=== PATIENT | male | born 1945 ===

== ENCOUNTER 2023-04-05 11:40 | Inpatient (IN) | payer BC, MEDICAID, SELFPAY ==
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
[2023-04-05 12:13] VITALS: BMI 20.4
[2023-04-05 12:27] VITALS: BP 124/85; PULSE 78; RESP 18; TEMP 36.2; O2SAT 98
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
[2023-04-05] MEDS: QUEtiapine Fumarate 50 MG TABLET PO ×2 (15:41→22:16)
[2023-04-05] MEDS: Divalproex Sodium Sprinkles 125 MG CAP.DR.SPR 250 MG PO ×2 (15:42→20:10)
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
[2023-04-05 18:00] VITALS: BP 138/81; PULSE 90; RESP 18; TEMP 36.6; O2SAT 99
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
[2023-04-05] MEDS: traZODone HCL 50 MG TABLET PO ×2 (20:10→22:16)
[2023-04-05] MEDS: hydrOXYzine HCL 25 MG TABLET PO (20:10)
[2023-04-06 07:45] VITALS: BP 116/65; PULSE 74; RESP 18; TEMP 36; O2SAT 100
[2023-04-06 08:33] LABS: Alanine Aminotransferase 12 U/L (0-40); Albumin Level 4.4 g/dL (3.5-5.0); Alkaline Phosphatase 37 U/L (39-117); Anion Gap 13 (12-20); Aspartate Amino Transferase 24 U/L (5-37); Bilirubin Total 0.9 mg/dL (0.0-1.0); Blood Urea Nitrogen 10 mg/dL (9-16); Calcium 9.6 mg/dL (8.4-10.2); Carbon Dioxide 25 mmol/L (22-29); Chloride 107 mmol/L (96-108); Cholesterol 155 mg/dL (<200); Creatinine Clr Calc Pharmacy 62.1; Estimated Glomerular Filt Rate > 60; Glucose Fasting 99 mg/dL (60-99); HDL Cholesterol 41 mg/dL (>40); LDL Cholesterol Calculated 97 mg/dL (<100); Potassium 3.7 mmol/L (3.3-5.1); Sodium 141 mmol/L (135-145); Total Protein 7.2 g/dL (6.5-8.0); Triglycerides 88 mg/dL (<150)
[2023-04-06] MEDS: Divalproex Sodium Sprinkles 125 MG CAP.DR.SPR 250 MG PO ×3 (08:58→20:20)
[2023-04-06] MEDS: QUEtiapine Fumarate 25 MG TABLET PO ×3 (09:06→20:20)
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
[2023-04-06 18:00] VITALS: BP 148/80; PULSE 97; RESP 16; TEMP 36.2; O2SAT 99
[2023-04-06] MEDS: Acetaminophen 325 MG TABLET 650 MG PO (18:26)
[2023-04-06] MEDS: hydrOXYzine HCL 25 MG TABLET PO (18:27)
[2023-04-06] MEDS: Donepezil HCl 5 MG TABLET PO (20:21)
[2023-04-07 08:00] VITALS: BP 155/90; PULSE 117; RESP 18; TEMP 36.2; O2SAT 99
[2023-04-07] MEDS: QUEtiapine Fumarate 25 MG TABLET PO ×3 (09:28→20:02)
[2023-04-07] MEDS: Divalproex Sodium Sprinkles 125 MG CAP.DR.SPR 250 MG PO ×3 (09:28→20:02)
[2023-04-07] MEDS: hydrOXYzine HCL 25 MG TABLET PO ×2 (12:34→20:02)
[2023-04-07] MEDS: QUEtiapine Fumarate 50 MG TABLET PO (12:38)
[2023-04-07 19:35] VITALS: BP 160/83; PULSE 107; RESP 16; TEMP 36.3; O2SAT 92
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
[2023-04-07] MEDS: Donepezil HCl 5 MG TABLET PO (20:02)
[2023-04-07] MEDS: traZODone HCL 50 MG TABLET PO (20:02)
[2023-04-08 08:30] VITALS: BP 105/54; PULSE 84; RESP 18; TEMP 36.3; O2SAT 100
[2023-04-08] MEDS: QUEtiapine Fumarate 25 MG TABLET PO ×3 (09:02→21:03)
[2023-04-08] MEDS: Divalproex Sodium Sprinkles 125 MG CAP.DR.SPR 250 MG PO ×3 (09:03→21:03)
[2023-04-08] MEDS: hydrOXYzine HCL 25 MG TABLET PO ×2 (17:25→23:36)
[2023-04-08] MEDS: QUEtiapine Fumarate 50 MG TABLET PO (17:25)
[2023-04-08 18:00] VITALS: BP 108/53; PULSE 89; RESP 17; TEMP 36.6; O2SAT 97
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
[2023-04-08] MEDS: Donepezil HCl 5 MG TABLET PO (21:03)
[2023-04-08] MEDS: Acetaminophen 325 MG TABLET 650 MG PO (21:05)
[2023-04-08] MEDS: traZODone HCL 50 MG TABLET PO ×2 (21:06→23:37)
[2023-04-09 08:01] LABS: MANUAL DIFF FLAG NO
[2023-04-09 08:07] VITALS: BP 144/68; PULSE 77; RESP 18; TEMP 36; O2SAT 99
[2023-04-09 08:09] LABS: Basophils Percent Auto 0.3 % (0-2); Eosinophils Percent Auto 1.4 % (0-4); Hematocrit 33.9 % (42.0-52.0); Hemoglobin 11.5 g/dl (14.0-18.0); Imm Gran Abs Auto 0.01 X10*3/uL (0.00-0.03); Imm Gran Pct Auto 0.3 % (0.0-0.4); Lymphocytes Percent Auto 35.7 % (20-40); Mean Corpuscular HGB Conc 33.9 g/dl (31.0-36.0); Mean Corpuscular Hemoglobin 34.3 pg (27.0-33.0); Mean Corpuscular Volume 101.2 fL (80.0-98.0); Mean Platelet Volume 9.4 fL (9.4-12.4); Monocytes Absolute Auto 0.4 X10*3/uL (0.1-1.2); Monocytes Percent Auto 12.6 % (2-11); Neutrophils Absolute Auto 1.4 x10*3/uL (2.0-8.3); Neutrophils Percent Auto 49.7 % (45-73); Platelet Count 217 X10*3/uL (160-400); Red Blood Count 3.35 X10*6/uL (4.60-5.80); Red Cell Distribution Width 12.5 % (11.0-16.0); White Blood Count 2.9 X10*3/uL (4.8-10.8)
[2023-04-09 08:19] LABS: Valproate 58.7 mcg/mL (50.0-100.0)
[2023-04-09 08:22] LABS: Alanine Aminotransferase 15 U/L (0-40); Albumin Level 4.3 g/dL (3.5-5.0); Alkaline Phosphatase 34 U/L (39-117); Anion Gap 10 (12-20); Aspartate Amino Transferase 24 U/L (5-37); Bilirubin Total 1.2 mg/dL (0.0-1.0); Blood Urea Nitrogen 18 mg/dL (9-16); Calcium 9.7 mg/dL (8.4-10.2); Carbon Dioxide 25 mmol/L (22-29); Chloride 109 mmol/L (96-108); Creatinine Clr Calc Pharmacy 60.6; Estimated Glomerular Filt Rate > 60; Glucose Random 102 mg/dL (60-115); Potassium 4.3 mmol/L (3.3-5.1); Sodium 140 mmol/L (135-145); Total Protein 7.1 g/dL (6.5-8.0)
[2023-04-09] MEDS: QUEtiapine Fumarate 25 MG TABLET 37.5 MG PO ×3 (09:29→20:37)
[2023-04-09] MEDS: Divalproex Sodium Sprinkles 125 MG CAP.DR.SPR 250 MG PO ×2 (09:29→14:04)
[2023-04-09] MEDS: QUEtiapine Fumarate 50 MG TABLET PO ×2 (11:49→23:42)
--- NOTE | 2023-04-09 12:03 | PC.NURSE ---
Po intake has been poor. Serge declined breakfast and didn't like his lunch. He was offered an alternative and he stated I don't eat what you pissers eat! Ice cream provided and he ate 2 chocolate ice creams and the dessert that came with lunch. Notified MD Adams that intake is poor and requested dietary consult.
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
[2023-04-09] MEDS: Loperamide HCl 2 MG CAPSULE PO (16:16)
[2023-04-09 18:00] VITALS: BP 104/51; PULSE 98; RESP 18; TEMP 36.2; O2SAT 100
[2023-04-09] MEDS: hydrOXYzine HCL 25 MG TABLET PO (20:38)
[2023-04-09] MEDS: Divalproex Sodium Sprinkles 125 MG CAP.DR.SPR 500 MG PO (20:39)
[2023-04-09] MEDS: Donepezil HCl 5 MG TABLET PO (20:39)
[2023-04-09] MEDS: traZODone HCL 50 MG TABLET PO (20:39)
[2023-04-09] MEDS: Acetaminophen 325 MG TABLET 650 MG PO (20:39)
[2023-04-10] MEDS: Divalproex Sodium Sprinkles 125 MG CAP.DR.SPR 250 MG PO (11:25)
[2023-04-10] MEDS: QUEtiapine Fumarate 50 MG TABLET PO ×4 (11:26→20:37)
[2023-04-10] MEDS: hydrOXYzine HCL 25 MG TABLET PO (11:26)
[2023-04-10 11:32] VITALS: RESP 20
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
[2023-04-10 18:00] VITALS: BP 111/69; PULSE 111; RESP 16; TEMP 36.6; O2SAT 94
[2023-04-10] MEDS: Donepezil HCl 5 MG TABLET PO (20:36)
[2023-04-10] MEDS: Divalproex Sodium Sprinkles 125 MG CAP.DR.SPR 500 MG PO (20:36)
[2023-04-10] MEDS: traZODone HCL 50 MG TABLET PO (20:36)
[2023-04-11] MEDS: Divalproex Sodium Sprinkles 125 MG CAP.DR.SPR 250 MG PO ×2 (08:49→16:05)
[2023-04-11] MEDS: QUEtiapine Fumarate 50 MG TABLET PO ×4 (08:49→16:05)
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
--- NOTE | 2023-04-11 14:06 | MHC.CLN ---
NUTRITION CONSULT FOR LOST WEIGHT IN THE COMMUNITY . NO WEIGHT HX VIEWED. INTAKE APPEARS POOR. TODAY, DID NOT EAT BREAKFAST, ATE 30% AT LUNCH. PATIENT CONFUSED AND UNABLE TO DISCUSS WEIGHT/INTAKE. ADDING ENSURE MAX TID TO PROVIDE ADDITIONAL 450 KCALS, 90 G PROTEIN.
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
[2023-04-11] MEDS: OLANZapine 10 MG VIAL 5 MG IM (17:41)
[2023-04-11 18:00] VITALS: BP 139/78; PULSE 118; RESP 18; TEMP 36.3; O2SAT 100
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
[2023-04-11] MEDS: QUEtiapine Fumarate 100 MG TABLET PO (19:48)
[2023-04-11] MEDS: Donepezil HCl 10 MG TABLET PO (19:48)
[2023-04-11] MEDS: Divalproex Sodium Sprinkles 125 MG CAP.DR.SPR 500 MG PO (19:48)
[2023-04-11] MEDS: traZODone HCL 50 MG TABLET PO (19:49)
[2023-04-11] MEDS: hydrOXYzine HCL 25 MG TABLET PO (19:49)
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
[2023-04-12] MEDS: QUEtiapine Fumarate 100 MG TABLET PO ×2 (15:59→19:41)
[2023-04-12] MEDS: Divalproex Sodium Sprinkles 125 MG CAP.DR.SPR 250 MG PO (15:59)
[2023-04-12 17:00] VITALS: BMI 20.2
[2023-04-12 18:00] VITALS: BP 135/91; PULSE 116; RESP 18; TEMP 36.6; O2SAT 97
[2023-04-12] MEDS: Donepezil HCl 10 MG TABLET PO (19:41)
[2023-04-12] MEDS: traZODone HCL 50 MG TABLET PO (19:41)
[2023-04-12] MEDS: Divalproex Sodium Sprinkles 125 MG CAP.DR.SPR 500 MG PO (19:41)
[2023-04-12] MEDS: hydrOXYzine HCL 25 MG TABLET PO (19:42)
[2023-04-13 09:00] VITALS: BP 134/68; PULSE 86; RESP 18; TEMP 36.1; O2SAT 95
[2023-04-13] MEDS: Divalproex Sodium Sprinkles 125 MG CAP.DR.SPR 250 MG PO ×2 (09:39→14:56)
[2023-04-13] MEDS: QUEtiapine Fumarate 100 MG TABLET PO ×2 (09:39→14:56)
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
[2023-04-13 18:00] VITALS: BP 132/61; PULSE 104; RESP 18; TEMP 36.3; O2SAT 100
[2023-04-13] MEDS: QUEtiapine Fumarate 50 MG TABLET PO (18:48)
[2023-04-13] MEDS: Divalproex Sodium Sprinkles 125 MG CAP.DR.SPR 500 MG PO (20:45)
[2023-04-13] MEDS: Donepezil HCl 10 MG TABLET PO (20:45)
[2023-04-13] MEDS: hydrOXYzine HCL 25 MG TABLET PO (20:45)
[2023-04-13] MEDS: QUEtiapine Fumarate 200 MG TABLET PO (20:46)
[2023-04-13] MEDS: traZODone HCL 50 MG TABLET PO (20:46)
[2023-04-13] MEDS: Memantine HCl 5 MG TABLET PO (20:46)
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
[2023-04-14 08:09] VITALS: BP 118/66; PULSE 94; RESP 18; TEMP 36.8; O2SAT 99
[2023-04-14] MEDS: hydrOXYzine HCL 25 MG TABLET PO ×2 (08:14→16:13)
[2023-04-14] MEDS: QUEtiapine Fumarate 50 MG TABLET PO ×2 (08:14→16:13)
[2023-04-14] MEDS: QUEtiapine Fumarate 100 MG TABLET PO ×2 (08:14→14:46)
[2023-04-14] MEDS: Divalproex Sodium Sprinkles 125 MG CAP.DR.SPR 250 MG PO ×2 (08:14→14:46)
[2023-04-14] MEDS: Memantine HCl 5 MG TABLET PO ×2 (08:14→20:25)
[2023-04-14] MEDS: OLANZapine ODT 10 MG TAB.RAPDIS TRANSLINGU ×2 (11:34→17:10)
[2023-04-14 18:00] VITALS: BP 127/81; PULSE 112; RESP 18; TEMP 36.4; O2SAT 98
[2023-04-14] MEDS: QUEtiapine Fumarate 200 MG TABLET PO (20:25)
[2023-04-14] MEDS: Donepezil HCl 10 MG TABLET PO (20:25)
[2023-04-14] MEDS: Divalproex Sodium Sprinkles 125 MG CAP.DR.SPR 500 MG PO (20:25)
[2023-04-14] MEDS: traZODone HCL 50 MG TABLET PO (20:25)
[2023-04-14] MEDS: Acetaminophen 325 MG TABLET 650 MG PO (20:30)
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
[2023-04-15] MEDS: Divalproex Sodium Sprinkles 125 MG CAP.DR.SPR 250 MG PO ×2 (11:06→14:25)
[2023-04-15] MEDS: hydrOXYzine HCL 25 MG TABLET PO (11:07)
[2023-04-15] MEDS: Memantine HCl 10 MG TABLET PO ×2 (11:07→20:22)
[2023-04-15] MEDS: QUEtiapine Fumarate 50 MG TABLET 150 MG PO ×2 (11:07→14:27)
[2023-04-15 11:15] VITALS: RESP 18
--- NOTE | 2023-04-15 11:39 | PC.NURSE ---
Declined to have vital signs taken despite multiple attempts by this television writer; Dr. Adams notified.
[2023-04-15] MEDS: QUEtiapine Fumarate 50 MG TABLET PO (17:18)
[2023-04-15 19:30] VITALS: BP 137/77; PULSE 90; RESP 18; TEMP 36.9; O2SAT 100
[2023-04-15] MEDS: traZODone HCL 50 MG TABLET PO (20:22)
[2023-04-15] MEDS: Divalproex Sodium Sprinkles 125 MG CAP.DR.SPR 500 MG PO (20:22)
[2023-04-15] MEDS: QUEtiapine Fumarate 300 MG TABLET PO (20:22)
[2023-04-15] MEDS: Donepezil HCl 10 MG TABLET PO (20:22)
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
[2023-04-16] MEDS: QUEtiapine Fumarate 50 MG TABLET 150 MG PO (13:30)
[2023-04-16] MEDS: Divalproex Sodium Sprinkles 125 MG CAP.DR.SPR 250 MG PO (14:20)
[2023-04-16 18:00] VITALS: BP 116/66; PULSE 108; RESP 16; TEMP 37; O2SAT 100
[2023-04-16] MEDS: Divalproex Sodium Sprinkles 125 MG CAP.DR.SPR 500 MG PO (20:32)
[2023-04-16] MEDS: Memantine HCl 10 MG TABLET PO (20:32)
[2023-04-16] MEDS: traZODone HCL 50 MG TABLET PO (20:33)
[2023-04-16] MEDS: QUEtiapine Fumarate 300 MG TABLET PO (20:33)
[2023-04-16] MEDS: Donepezil HCl 10 MG TABLET PO (20:38)
[2023-04-16] MEDS: hydrOXYzine HCL 25 MG TABLET PO (20:39)
[2023-04-17 08:05] VITALS: BP 118/61; PULSE 71; RESP 18; TEMP 36.6; O2SAT 100
[2023-04-17] MEDS: QUEtiapine Fumarate 50 MG TABLET 150 MG PO ×2 (09:01→13:29)
[2023-04-17] MEDS: Divalproex Sodium Sprinkles 125 MG CAP.DR.SPR 250 MG PO ×2 (09:02→14:36)
[2023-04-17] MEDS: Memantine HCl 10 MG TABLET PO ×2 (09:02→20:13)
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
[2023-04-17 18:00] VITALS: BP 126/72; PULSE 98; RESP 16; TEMP 36.3; O2SAT 99
[2023-04-17] MEDS: Divalproex Sodium Sprinkles 125 MG CAP.DR.SPR 500 MG PO (20:12)
[2023-04-17] MEDS: traZODone HCL 50 MG TABLET PO (20:13)
[2023-04-17] MEDS: QUEtiapine Fumarate 300 MG TABLET PO (20:13)
[2023-04-17] MEDS: Donepezil HCl 10 MG TABLET PO (20:17)
[2023-04-18] MEDS: Divalproex Sodium Sprinkles 125 MG CAP.DR.SPR 250 MG PO ×2 (11:44→15:25)
[2023-04-18] MEDS: Memantine HCl 10 MG TABLET PO ×2 (11:44→21:06)
[2023-04-18] MEDS: QUEtiapine Fumarate 50 MG TABLET 150 MG PO ×2 (11:45→15:26)
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
[2023-04-18 18:00] VITALS: BP 115/57; PULSE 116; RESP 16; TEMP 35.7; O2SAT 100
[2023-04-18] MEDS: Divalproex Sodium Sprinkles 125 MG CAP.DR.SPR 500 MG PO (21:05)
[2023-04-18] MEDS: hydrOXYzine HCL 25 MG TABLET PO (21:06)
[2023-04-18] MEDS: traZODone HCL 50 MG TABLET PO (21:06)
[2023-04-18] MEDS: Donepezil HCl 10 MG TABLET PO (21:06)
[2023-04-18] MEDS: QUEtiapine Fumarate 300 MG TABLET PO (21:06)
[2023-04-19 10:00] VITALS: BP 119/59; PULSE 99; RESP 16; TEMP 36.3; O2SAT 99
[2023-04-19] MEDS: QUEtiapine Fumarate 50 MG TABLET 150 MG PO ×2 (10:57→14:41)
[2023-04-19] MEDS: Memantine HCl 10 MG TABLET PO ×2 (10:57→21:08)
[2023-04-19] MEDS: Divalproex Sodium Sprinkles 125 MG CAP.DR.SPR 250 MG PO ×2 (10:57→14:42)
[2023-04-19 10:58] LABS: MANUAL DIFF FLAG NO
[2023-04-19 11:03] LABS: Basophils Percent Auto 0.2 % (0-2); Eosinophils Percent Auto 0.4 % (0-4); Hematocrit 33.6 % (42.0-52.0); Hemoglobin 11.5 g/dl (14.0-18.0); Imm Gran Abs Auto 0.03 X10*3/uL (0.00-0.03); Imm Gran Pct Auto 0.6 % (0.0-0.4); Lymphocytes Absolute Auto 0.6 X10*3/uL (1.2-4.9); Lymphocytes Percent Auto 10.6 % (20-40); Mean Corpuscular HGB Conc 34.2 g/dl (31.0-36.0); Mean Corpuscular Hemoglobin 33.8 pg (27.0-33.0); Mean Corpuscular Volume 98.8 fL (80.0-98.0); Mean Platelet Volume 9.5 fL (9.4-12.4); Monocytes Absolute Auto 0.6 X10*3/uL (0.1-1.2); Monocytes Percent Auto 11.4 % (2-11); Neutrophils Percent Auto 76.8 % (45-73); Platelet Count 212 X10*3/uL (160-400); Red Cell Distribution Width 12.2 % (11.0-16.0); White Blood Count 5.2 X10*3/uL (4.8-10.8)
[2023-04-19 11:19] LABS: Alanine Aminotransferase 13 U/L (0-40); Albumin Level 3.9 g/dL (3.5-5.0); Alkaline Phosphatase 39 U/L (39-117); Anion Gap 15 (12-20); Aspartate Amino Transferase 22 U/L (5-37); Bilirubin Total 0.7 mg/dL (0.0-1.0); Blood Urea Nitrogen 24 mg/dL (9-16); Calcium 9.6 mg/dL (8.4-10.2); Carbon Dioxide 25 mmol/L (22-29); Chloride 106 mmol/L (96-108); Cholesterol 158 mg/dL (<200); Creatinine Clr Calc Pharmacy 63.2; Estimated Glomerular Filt Rate > 60; Glucose Fasting 116 mg/dL (60-99); HDL Cholesterol 44 mg/dL (>40); LDL Cholesterol Calculated 102 mg/dL (<100); Potassium 4.1 mmol/L (3.3-5.1); Sodium 142 mmol/L (135-145); Total Protein 6.9 g/dL (6.5-8.0); Triglycerides 63 mg/dL (<150)
[2023-04-19 11:26] LABS: Valproate 60.3 mcg/mL (50.0-100.0)
[2023-04-19 13:12] LABS: Estimated Average Glucose 103 mg/dL; Hemoglobin A1c % 5.2 % (<6.0)
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
[2023-04-19 18:00] VITALS: BP 131/78; PULSE 114; RESP 18; TEMP 36.7; O2SAT 99
[2023-04-19] MEDS: traZODone HCL 50 MG TABLET PO (21:08)
[2023-04-19] MEDS: QUEtiapine Fumarate 300 MG TABLET PO (21:08)
[2023-04-19] MEDS: hydrOXYzine HCL 25 MG TABLET PO (21:08)
[2023-04-19] MEDS: Divalproex Sodium Sprinkles 125 MG CAP.DR.SPR 500 MG PO (21:08)
[2023-04-19] MEDS: Donepezil HCl 10 MG TABLET PO (21:08)
[2023-04-20 06:00] VITALS: BP 128/72; PULSE 88; RESP 16; TEMP 36.5; O2SAT 99
[2023-04-20] MEDS: Memantine HCl 10 MG TABLET PO ×2 (11:03→20:40)
[2023-04-20] MEDS: QUEtiapine Fumarate 50 MG TABLET 150 MG PO ×2 (11:03→13:38)
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
[2023-04-20] MEDS: Divalproex Sodium Sprinkles 125 MG CAP.DR.SPR 500 MG PO ×2 (14:26→20:40)
[2023-04-20 19:45] VITALS: BP 123/69; PULSE 103; RESP 16; TEMP 36.2; O2SAT 100
[2023-04-20] MEDS: traZODone HCL 50 MG TABLET PO (20:39)
[2023-04-20] MEDS: QUEtiapine Fumarate 300 MG TABLET PO (20:39)
[2023-04-20] MEDS: Donepezil HCl 10 MG TABLET PO (20:40)
[2023-04-21 08:10] VITALS: BP 119/75; PULSE 97; RESP 18; TEMP 36.6; O2SAT 98
[2023-04-21] MEDS: Memantine HCl 10 MG TABLET PO ×2 (09:16→20:07)
[2023-04-21] MEDS: QUEtiapine Fumarate 50 MG TABLET 150 MG PO (09:16)
[2023-04-21] MEDS: Divalproex Sodium Sprinkles 125 MG CAP.DR.SPR 500 MG PO ×2 (09:17→20:07)
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
[2023-04-21] MEDS: Acetaminophen 325 MG TABLET 650 MG PO (12:20)
[2023-04-21 18:00] VITALS: BP 128/73; PULSE 100; RESP 18; TEMP 36.6; O2SAT 99
[2023-04-21] MEDS: Donepezil HCl 10 MG TABLET PO (20:07)
[2023-04-21] MEDS: QUEtiapine Fumarate 300 MG TABLET PO (20:07)
[2023-04-21] MEDS: traZODone HCL 50 MG TABLET PO (20:07)
[2023-04-22 06:00] VITALS: BP 137/77; PULSE 90; RESP 16; TEMP 36.9; O2SAT 98
--- NOTE | 2023-04-22 06:51 | PC.NURSE ---
During morning care noticed a lg fluid filled blister on right heel, foot elevated to get pressure off the heel No c/o pain or discomfort at this time
[2023-04-22] MEDS: Memantine HCl 10 MG TABLET PO ×2 (08:37→20:21)
[2023-04-22] MEDS: Divalproex Sodium Sprinkles 125 MG CAP.DR.SPR 500 MG PO ×3 (08:37→20:21)
[2023-04-22] MEDS: QUEtiapine Fumarate 50 MG TABLET 150 MG PO ×2 (08:37→13:44)
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
[2023-04-22 19:35] VITALS: BP 155/65; PULSE 95; RESP 16; TEMP 36.5; O2SAT 100
[2023-04-22] MEDS: QUEtiapine Fumarate 300 MG TABLET PO (20:21)
[2023-04-22] MEDS: traZODone HCL 50 MG TABLET PO (20:21)
[2023-04-22] MEDS: Donepezil HCl 10 MG TABLET PO (20:21)
[2023-04-23 10:00] VITALS: BP 111/60; PULSE 92; RESP 18; TEMP 36.2; O2SAT 97
[2023-04-23] MEDS: Memantine HCl 10 MG TABLET PO ×2 (10:56→21:26)
[2023-04-23] MEDS: QUEtiapine Fumarate 50 MG TABLET PO (10:56)
[2023-04-23] MEDS: QUEtiapine Fumarate 50 MG TABLET 150 MG PO ×2 (10:57→15:36)
[2023-04-23] MEDS: Divalproex Sodium Sprinkles 125 MG CAP.DR.SPR 500 MG PO ×3 (10:57→21:26)
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
--- NOTE | 2023-04-23 16:54 | PC.NURSE ---
Addendum entered by Ashely Cerna RN 04/23/23 16:56: Reddened round areas on bilateral buttocks noted during providing care. Area washed, patted dry and barrier cream applied. Will continue to monitor. Original Note: Pt has blister on right heel, slight amt of fluid. Skin prep applied. MD notified (dr Adams). Pt denies pain.
[2023-04-23 18:00] VITALS: BP 126/91; PULSE 99; RESP 18; TEMP 36.8; O2SAT 98
[2023-04-23] MEDS: Donepezil HCl 10 MG TABLET PO (21:26)
[2023-04-23] MEDS: traZODone HCL 50 MG TABLET PO (21:26)
[2023-04-23] MEDS: QUEtiapine Fumarate 300 MG TABLET PO (21:26)
[2023-04-24] MEDS: hydrOXYzine HCL 25 MG TABLET PO ×2 (02:39→20:16)
[2023-04-24] MEDS: Acetaminophen 325 MG TABLET 650 MG PO ×2 (02:39→20:14)
[2023-04-24 06:00] VITALS: BP 132/70; PULSE 96; RESP 18; TEMP 36.2; O2SAT 98
[2023-04-24] MEDS: Divalproex Sodium Sprinkles 125 MG CAP.DR.SPR 500 MG PO ×3 (11:58→20:15)
[2023-04-24] MEDS: Memantine HCl 10 MG TABLET PO ×2 (11:59→20:16)
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
[2023-04-24] MEDS: QUEtiapine Fumarate 200 MG TABLET PO (12:25)
--- NOTE | 2023-04-24 15:32 | HO.WOUND ---
Wound Care Consult Reason for consult: Pt with suspected right heel breakdown, question impaired skin integrity to right and left buttock. Patient was in the bed at the time of consult. Patient was being verbally abusive and combative with care. With the help of another nurse, patient was redirected and was manageable to assess and treat. The patient has a stage II pressure injury to his right heel. Patient wearing prevalon boots to help offload area. Foam border removed. Patient has a intact fluid filled blister measuring 3cm x 3.5cm. No drainage on the dressing. The blister seems to be reabsorbing. Surrounding skin is intact. Skin prep applied to the blister and periwound. Foam border applied and boot put back on. The other area in question was his bilateral buttocks. the right buttock skin is dry and intact. No abnormalities at this time. For the left buttock, a foam border was removed. Zinc barrier cream being used. There is a 5cm x 5.5cm area of blanchable redness. Not yet a stage I. Foam border reapplied over area. Recommendation: For the right heel, would wipe area with skin prep to help protect blistered area. Apply a foam border to help pad and protect. Would change foam every other day to keep an eye to the area. Continue to wear the offloading boot when in bed. For the left buttock, may continue to apply a thin layer of zinc barrier cream and foam border every other day to reddened area. If patient is in bed for long periods of time, make sure to do frequent repositioning if patient is agreeable. Not sure on nutritional status with patient, but if able would increase protein intake to help with wound healing. If there are any changes or questions, please feel free and reconsult wound care.
[2023-04-24 18:00] VITALS: BP 132/68; PULSE 106; RESP 18; TEMP 36.9; O2SAT 98
[2023-04-24] MEDS: traZODone HCL 50 MG TABLET PO (20:16)
[2023-04-24] MEDS: QUEtiapine Fumarate 300 MG TABLET PO (20:16)
[2023-04-24] MEDS: Donepezil HCl 10 MG TABLET PO (20:16)
[2023-04-25 06:00] VITALS: RESP 16
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
[2023-04-25 13:58] VITALS: BMI 20.2
[2023-04-25] MEDS: Divalproex Sodium Sprinkles 125 MG CAP.DR.SPR 500 MG PO (14:16)
[2023-04-25] MEDS: QUEtiapine Fumarate 200 MG TABLET PO (14:16)
[2023-04-25] MEDS: Memantine HCl 10 MG TABLET PO ×2 (14:16→21:54)
--- NOTE | 2023-04-25 14:28 | MHC.CLN ---
NUTRITION CONSULT FOR WOUND. REGULAR DIET, ENSURE MAX PROTEIN TID PROVIDES 450 KCALS, 90 G PROTEIN. NEW STAGE II PRESSURE INJURY TO RIGHT HEEL. SUPPLEMENT TO INCREASE PO INTAKE AND PROMOTE WOUND HEALING. INTAKE AT MEALS 0-25%. DOES NOT APPEAR TO BE MEETING NUTRITIONAL NEEDS VIA PO. STATUS IS FULL CODE. MAY BENEFIT FROM ARTIFICIAL NUTRITION. FOLLOW FOR INTAKE, WEIGHT AND WOUND HEALING.
[2023-04-25 18:00] VITALS: BP 141/62; RESP 18; TEMP 36.7
[2023-04-25] MEDS: Divalproex Sodium Sprinkles 125 MG CAP.DR.SPR 750 MG PO (21:53)
[2023-04-25] MEDS: traZODone HCL 50 MG TABLET PO (21:54)
[2023-04-25] MEDS: Donepezil HCl 10 MG TABLET PO (21:54)
[2023-04-25] MEDS: QUEtiapine Fumarate 300 MG TABLET PO (21:54)
[2023-04-26 07:00] VITALS: BMI 17.0
[2023-04-26 08:10] VITALS: BP 121/65; PULSE 76; RESP 18; TEMP 36.1; O2SAT 99
[2023-04-26] MEDS: QUEtiapine Fumarate 200 MG TABLET PO (08:47)
[2023-04-26] MEDS: Memantine HCl 10 MG TABLET PO (08:47)
[2023-04-26] MEDS: Divalproex Sodium Sprinkles 125 MG CAP.DR.SPR 500 MG PO ×2 (08:47→16:46)
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
[2023-04-26 19:45] VITALS: BP 115/61; PULSE 91; RESP 18; TEMP 36.3; O2SAT 98
[2023-04-27] MEDS: Memantine HCl 10 MG TABLET PO (10:51)
[2023-04-27] MEDS: Divalproex Sodium Sprinkles 125 MG CAP.DR.SPR 500 MG PO ×2 (10:51→15:38)
--- NOTE | 2023-04-27 12:49 | MHC.CLN ---
F/U DIET=REGULAR. ENSURE MAX PROTEIN TID PROVIDES 450 KCALS, 90 G PROTEIN. STAGE II PRESSURE INJURY TO RIGHT HEEL. SUPPLEMENT TO INCREASE PO INTAKE AND PROMOTE WOUND HEALING. INTAKE AT MEALS CONTINUES TO BE POOR. DOES NOT APPEAR TO BE MEETING NUTRITIONAL NEEDS VIA PO. COMPARISON OF WEIGHTS ON 04/26 AND 04/05 SHOW SIGNIFICANT, UNPLANNED WEIGHT LOSS -16.4% X APPROX ONE MONTH. STATUS IS FULL CODE. MAY BENEFIT FROM ARTIFICIAL NUTRITION. FOLLOW FOR INTAKE, WEIGHT AND WOUND HEALING.
[2023-04-27 18:00] VITALS: BP 146/64; PULSE 82; RESP 18; TEMP 36.2; O2SAT 97
[2023-04-27] MEDS: QUEtiapine Fumarate 300 MG TABLET PO (20:40)
[2023-04-27] MEDS: Donepezil HCl 10 MG TABLET PO (20:40)
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
[2023-04-28 08:39] VITALS: RESP 16; TEMP 36.2
[2023-04-28] MEDS: Divalproex Sodium Sprinkles 125 MG CAP.DR.SPR 500 MG PO ×2 (09:02→14:15)
[2023-04-28] MEDS: QUEtiapine Fumarate 50 MG TABLET PO ×2 (09:03→17:22)
[2023-04-28 11:53] LABS: Alanine Aminotransferase 11 U/L (0-40); Albumin Level 3.3 g/dL (3.5-5.0); Alkaline Phosphatase 40 U/L (39-117); Anion Gap 17 (12-20); Aspartate Amino Transferase 18 U/L (5-37); Bilirubin Total 0.4 mg/dL (0.0-1.0); Blood Urea Nitrogen 22 mg/dL (9-16); Calcium 8.7 mg/dL (8.4-10.2); Carbon Dioxide 26 mmol/L (22-29); Chloride 104 mmol/L (96-108); Creatinine Clr Calc Pharmacy 57.5; Estimated Glomerular Filt Rate > 60; Glucose Random 92 mg/dL (60-115); Potassium 3.7 mmol/L (3.3-5.1); Sodium 143 mmol/L (135-145)
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
--- NOTE | 2023-04-28 15:42 | PC.NURSE ---
Dr. Verdugo notified that Serge declined VS and that blood work from the morning returned with many abnormal results.
[2023-04-28 18:00] VITALS: BP 128/77; PULSE 88; RESP 18; TEMP 35.7; O2SAT 100
[2023-04-28] MEDS: QUEtiapine Fumarate 300 MG TABLET PO (20:20)
[2023-04-28] MEDS: Acetaminophen 325 MG TABLET 650 MG PO (20:20)
--- NOTE | 2023-04-29 13:10 | PM.EVENT ---
Event Note Date of Service: 04/29/23 Event Note: 77-year-old male with history of Alzheimer's dementia with behavioral disturbance, chronic macrocytic anemia, history of dysphagia admitted to geriatric psychiatry consult placed to hospitalist service for evaluation of pancytopenia and unintentional weight loss. The patient has lost >16% body weight sine admission. Was 61kg in 12/12 at PCP office. On admission was 57kg, now 47.9kg. The patient is not eating though on exam endorses that he is hungry. When offered meals he yells this smells like sh*t . Patient unable to provide answer when asked what he can be brought to eat that he would like. Becomes tangential stating he is scared but unable to elaborate and uttering nonsensical words. He is being offered nutrition supplements and is being followed by nutrition. On review of chart as well as [facility] chart, patient has had chronic intermittent leukopenia and macrocytic anemia, platelets normal. His creatinine remains stable, but BUN climbing, patient not drinking. Electrolytes normal. Hgb A1c 5.2%. Hepatic function normal. Total protein has dropped to 6.0, albumin to 3.3 in the setting of malnutrition. He is afebrile, vitals stable. Given the leukopenia, will check UA and CXR though low suspicion for infectious process. In my opinion, lab abnormalities and weight loss are likely largely due to malnutrition, though bone marrow/myelodysplastic syndrome cannot be entirely excluded. The patient has failure to thrive in the setting cerebral atrophy related to advanced alzheimers dementia. I do not think head ct would improve or change outcomes. I do not think artificial nutrition/g tube for nutrition would improve his quality of life, but could be considered if family desires. Given patient's significant decline and failure to thrive r/t alzheimer's dementia, would recommend consideration of family discussion to make patient comfort measures only. If family desires, can pursue outpt age appropriate cancer screening given the long standing leukopenia and weight loss, but prognosis remains guarded and this is unlikely to improve quality of life. Time Spent With Patient Time: Total time managing care of this patient today ____ minutes.
[2023-04-29 18:00] VITALS: RESP 16
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
[2023-04-29] MEDS: QUEtiapine Fumarate 300 MG TABLET PO (20:20)
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
[2023-04-29] MEDS: QUEtiapine Fumarate 50 MG TABLET PO (22:29)
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
[2023-04-30] MEDS: QUEtiapine Fumarate 50 MG TABLET PO (14:53)
[2023-04-30] MEDS: Acetaminophen 325 MG TABLET 650 MG PO (14:53)
[2023-04-30 15:02] VITALS: BMI 17.0
--- NOTE | 2023-04-30 15:08 | MHC.CLN ---
Addendum entered by Ying Veliz, RD 04/30/23 15:14: ALERTED PROVIDER ABOUT MALNUTRITION VIA TIGER TEXT. Original Note: NUTRITION QUALIFIES SEVERELY MALNOURISHED BASED ON SIGNIFICANT WEIGHT LOSS OF -16.4% X LESS THAN ONE MONTH AND POOR PO INTAKE. DIET=REGULAR. ENSURE MAX PROTEIN TID PROVIDES 450 KCALS, 90 G PROTEIN. PATIENT APPEARS THIN. STAGE II PRESSURE INJURY TO RIGHT HEEL. SUPPLEMENT TO INCREASE PO INTAKE AND PROMOTE WOUND HEALING. INTAKE AT MEALS 0-25%. DOES NOT APPEAR TO BE MEETING NUTRITIONAL NEEDS VIA PO. STATUS IS FULL CODE. MAY BENEFIT FROM ARTIFICIAL NUTRITION. FOLLOW FOR INTAKE, WEIGHT AND WOUND HEALING.
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
[2023-04-30 18:00] VITALS: RESP 16
[2023-05-01] MEDS: QUEtiapine Fumarate 50 MG TABLET PO (03:49)
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
[2023-05-01 18:00] VITALS: BP 134/69; PULSE 102; RESP 16; TEMP 36.2; O2SAT 97
[2023-05-02 10:05] VITALS: BP 120/73; PULSE 82; RESP 18; TEMP 36.4; O2SAT 94
--- NOTE | 2023-05-02 14:01 | MHC.CLN ---
F/U DIET=REGULAR. ENSURE MAX PROTEIN TID PROVIDES 450 KCALS, 90 G PROTEIN. STAGE II PRESSURE INJURY TO RIGHT HEEL. SUPPLEMENT TO INCREASE PO INTAKE AND PROMOTE WOUND HEALING. INTAKE TODAY WAS 0 AT BREAKFAST AND 80% AT LUNCH. QUALIFIES SEVERE MALNUTRITION. FAMILY MEETING TODAY. FOLLOW FOR GOALS OF CARE, INTAKE, WEIGHT AND WOUND HEALING.
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
[2023-05-02 18:00] VITALS: BP 132/62; PULSE 99; RESP 17; TEMP 36.6; O2SAT 96
[2023-05-02] MEDS: OLANZapine 7.5 MG TABLET PO (20:03)
[2023-05-02] MEDS: Memantine HCl 10 MG TABLET PO (20:03)
[2023-05-02] MEDS: Divalproex Sodium Sprinkles 125 MG CAP.DR.SPR 750 MG PO (20:03)
[2023-05-02] MEDS: traZODone HCL 25 MG HALFTAB PO (20:04)
[2023-05-02] MEDS: traZODone HCL 50 MG TABLET PO ×2 (20:04→22:48)
[2023-05-02] MEDS: OLANZapine ODT 10 MG TAB.RAPDIS TRANSLINGU (21:31)
[2023-05-03] MEDS: OLANZapine 5 MG TABLET PO (00:24)
[2023-05-03] MEDS: LORazepam 1 MG TABLET 2 MG PO (00:24)
[2023-05-03 07:00] VITALS: BMI 18.3
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
[2023-05-03] MEDS: traZODone HCL 50 MG TABLET PO ×3 (14:23→21:02)
[2023-05-03] MEDS: Divalproex Sodium Sprinkles 125 MG CAP.DR.SPR 500 MG PO (14:24)
[2023-05-03 18:00] VITALS: BP 119/75; PULSE 109; RESP 18; TEMP 37.1; O2SAT 97
[2023-05-03] MEDS: OLANZapine ODT 10 MG TAB.RAPDIS TRANSLINGU (18:40)
[2023-05-03] MEDS: Divalproex Sodium Sprinkles 125 MG CAP.DR.SPR 750 MG PO (21:02)
[2023-05-03] MEDS: Acetaminophen 325 MG TABLET 650 MG PO (21:02)
[2023-05-03] MEDS: Memantine HCl 10 MG TABLET PO (21:02)
[2023-05-03] MEDS: OLANZapine 7.5 MG TABLET PO (21:02)
[2023-05-04 08:00] VITALS: BP 101/58; PULSE 66; RESP 18; TEMP 36.6; O2SAT 97
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
[2023-05-04] MEDS: Divalproex Sodium Sprinkles 125 MG CAP.DR.SPR 500 MG PO ×2 (10:00→14:55)
[2023-05-04] MEDS: OLANZapine 2.5 MG TABLET PO (10:00)
[2023-05-04] MEDS: traZODone HCL 50 MG TABLET PO ×4 (10:00→20:11)
[2023-05-04] MEDS: Memantine HCl 10 MG TABLET PO ×2 (10:00→21:27)
--- NOTE | 2023-05-04 13:21 | MHC.CLN ---
F/U DIET=REGULAR. ENSURE MAX PROTEIN TID PROVIDES 450 KCALS, 90 G PROTEIN. STAGE II PRESSURE INJURY TO RIGHT HEEL. SUPPLEMENT TO INCREASE PO INTAKE AND PROMOTE WOUND HEALING. IMPROVED INTAKE TODAY WITH 75% CONSUMED AT BREAKFAST AND LUNCH. DISCUSSED FINGER FOODS WITH STAFF. PATIENT IS FED AND LIKES MASHED POTATOES. CHANGE OF ORDER TO FINGER FOODS WOULD LIMIT OPTIONS. FINGER FOODS ALWAYS AVAILABLE ON MENU FOR SELECTION. KITCHEN NOTIFIED OF CHOCOLATE PREFERENCE FOR ENSURE. MOLST COMPLETED. NO TUBE FEEDING. FOLLOW FOR INTAKE AND WOUND HEALING.
[2023-05-04] MEDS: Divalproex Sodium Sprinkles 125 MG CAP.DR.SPR 750 MG PO (20:10)
[2023-05-04] MEDS: OLANZapine 7.5 MG TABLET PO (20:10)
[2023-05-04 20:40] VITALS: BP 125/62; PULSE 107; RESP 18; TEMP 36.3; O2SAT 95
[2023-05-05] MEDS: OLANZapine ODT 10 MG TAB.RAPDIS TRANSLINGU ×3 (00:03→14:49)
[2023-05-05] MEDS: Acetaminophen 325 MG TABLET 650 MG PO (00:46)
[2023-05-05 10:47] VITALS: BP 164/67; PULSE 87; RESP 16; TEMP 36.3; O2SAT 99
[2023-05-05] MEDS: Divalproex Sodium Sprinkles 125 MG CAP.DR.SPR 500 MG PO ×2 (10:51→14:48)
[2023-05-05] MEDS: traZODone HCL 50 MG TABLET PO ×4 (10:52→20:40)
[2023-05-05] MEDS: Memantine HCl 10 MG TABLET PO ×2 (10:52→20:40)
[2023-05-05] MEDS: OLANZapine 2.5 MG TABLET PO (10:52)
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
[2023-05-05 20:35] VITALS: BP 138/66; PULSE 115; RESP 17; TEMP 36.9; O2SAT 97
[2023-05-05] MEDS: Divalproex Sodium Sprinkles 125 MG CAP.DR.SPR 750 MG PO (20:39)
[2023-05-05] MEDS: OLANZapine 7.5 MG TABLET PO (20:40)
[2023-05-06] MEDS: OLANZapine ODT 10 MG TAB.RAPDIS TRANSLINGU (00:15)
[2023-05-06 11:42] VITALS: BP 153/66; PULSE 90; RESP 16; TEMP 36.4; O2SAT 97
[2023-05-06] MEDS: OLANZapine 2.5 MG TABLET PO (11:49)
[2023-05-06] MEDS: Divalproex Sodium Sprinkles 125 MG CAP.DR.SPR 500 MG PO ×2 (11:49→14:56)
[2023-05-06] MEDS: traZODone HCL 50 MG TABLET PO ×4 (11:49→20:21)
[2023-05-06] MEDS: Memantine HCl 10 MG TABLET PO ×2 (11:49→20:21)
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
[2023-05-06 18:00] VITALS: BP 127/73; PULSE 87; RESP 16; TEMP 36.4; O2SAT 97
[2023-05-06] MEDS: Acetaminophen 325 MG TABLET 650 MG PO (20:20)
[2023-05-06] MEDS: OLANZapine 7.5 MG TABLET PO (20:21)
[2023-05-06] MEDS: Divalproex Sodium Sprinkles 125 MG CAP.DR.SPR 750 MG PO (20:21)
[2023-05-07 08:00] VITALS: BP 116/56; PULSE 89; RESP 18; TEMP 36.2; O2SAT 98
[2023-05-07] MEDS: Divalproex Sodium Sprinkles 125 MG CAP.DR.SPR 500 MG PO ×2 (08:06→15:11)
[2023-05-07] MEDS: Memantine HCl 10 MG TABLET PO ×2 (08:06→20:32)
[2023-05-07] MEDS: OLANZapine 2.5 MG TABLET PO (08:06)
[2023-05-07] MEDS: traZODone HCL 50 MG TABLET PO ×3 (08:07→22:47)
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
--- NOTE | 2023-05-07 14:49 | MHC.CLN ---
Addendum entered by Ying Veliz RD 05/07/23 14:51: WEIGHT ON 05/03/23=51.483 KG. SHOWS SIGNIFICANT WEIGHT LOSS X 30 DAYS -10.2#. CONTINUE CURRENT NUTRITION INTERVENTIONS. Original Note: F/U DIET=REGULAR. ENSURE MAX PROTEIN TID PROVIDES 450 KCALS, 90 G PROTEIN. STAGE II PRESSURE INJURY TO RIGHT HEEL. SUPPLEMENT TO INCREASE PO INTAKE AND PROMOTE WOUND HEALING. ATE 100% AT BREAKFAST TODAY AND NO LUNCH. MOLST COMPLETED. NO TUBE FEEDING. FOLLOW FOR INTAKE AND WOUND HEALING. RD TO FOLLOW WEEKLY.
[2023-05-07] MEDS: traZODone HCL 25 MG HALFTAB 75 MG PO ×2 (15:11→20:32)
[2023-05-07] MEDS: Acetaminophen 325 MG TABLET 650 MG PO (16:43)
[2023-05-07] MEDS: OLANZapine ODT 10 MG TAB.RAPDIS TRANSLINGU (16:43)
[2023-05-07 18:00] VITALS: BP 150/68; PULSE 81; RESP 16; TEMP 36.4; O2SAT 98
[2023-05-07] MEDS: Divalproex Sodium Sprinkles 125 MG CAP.DR.SPR 750 MG PO (20:31)
[2023-05-07] MEDS: OLANZapine 7.5 MG TABLET PO (20:32)
[2023-05-08] MEDS: OLANZapine ODT 10 MG TAB.RAPDIS TRANSLINGU ×2 (03:41→22:28)
[2023-05-08 11:58] VITALS: BP 116/63; PULSE 109; RESP 14; TEMP 35.7; O2SAT 97
[2023-05-08] MEDS: Divalproex Sodium Sprinkles 125 MG CAP.DR.SPR 500 MG PO ×2 (12:02→16:57)
[2023-05-08] MEDS: traZODone HCL 100 MG TABLET PO ×3 (12:05→21:24)
[2023-05-08] MEDS: OLANZapine 2.5 MG TABLET PO (12:05)
[2023-05-08] MEDS: Memantine HCl 10 MG TABLET PO ×2 (12:05→21:24)
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
[2023-05-08] MEDS: Divalproex Sodium Sprinkles 125 MG CAP.DR.SPR 750 MG PO (21:23)
[2023-05-08] MEDS: traZODone HCL 50 MG TABLET PO ×2 (21:24→22:29)
[2023-05-08] MEDS: OLANZapine 7.5 MG TABLET PO (21:24)
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
[2023-05-09 08:15] VITALS: BP 120/83; PULSE 90; RESP 16; TEMP 36.6; O2SAT 100
[2023-05-09] MEDS: OLANZapine 2.5 MG TABLET PO (11:13)
[2023-05-09] MEDS: Memantine HCl 10 MG TABLET PO ×2 (11:13→21:33)
[2023-05-09] MEDS: traZODone HCL 100 MG TABLET PO ×3 (11:13→21:34)
[2023-05-09] MEDS: Divalproex Sodium Sprinkles 125 MG CAP.DR.SPR 500 MG PO ×2 (11:13→15:38)
[2023-05-09 18:00] VITALS: BP 111/61; PULSE 85; RESP 18; TEMP 36.9; O2SAT 98
[2023-05-09] MEDS: Divalproex Sodium Sprinkles 125 MG CAP.DR.SPR 750 MG PO (21:33)
[2023-05-09] MEDS: OLANZapine 7.5 MG TABLET PO (21:33)
[2023-05-10 07:00] VITALS: BMI 18.7
[2023-05-10 09:00] VITALS: TEMP 36.1
[2023-05-10] MEDS: Divalproex Sodium Sprinkles 125 MG CAP.DR.SPR 500 MG PO ×2 (11:23→15:32)
[2023-05-10] MEDS: Memantine HCl 10 MG TABLET PO ×2 (11:23→20:22)
[2023-05-10] MEDS: traZODone HCL 100 MG TABLET PO ×3 (11:23→20:22)
[2023-05-10] MEDS: OLANZapine 2.5 MG TABLET PO (11:24)
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
[2023-05-10 18:00] VITALS: BP 112/51; PULSE 94; RESP 16; TEMP 36.4; O2SAT 99
[2023-05-10] MEDS: OLANZapine 7.5 MG TABLET PO (20:22)
[2023-05-10] MEDS: traZODone HCL 50 MG TABLET PO (20:22)
[2023-05-10] MEDS: Divalproex Sodium Sprinkles 125 MG CAP.DR.SPR 750 MG PO (20:24)
[2023-05-11] VITALS (11 sets, daily range): BP systolic 111–141; BP diastolic 57–72; PULSE 85–104; RESP 16–18; TEMP 36.5–37.2; O2SAT 96–100
[2023-05-11] MEDS: Memantine HCl 10 MG TABLET PO ×2 (08:16→20:07)
[2023-05-11] MEDS: OLANZapine 2.5 MG TABLET PO (08:16)
[2023-05-11] MEDS: traZODone HCL 100 MG TABLET PO ×3 (08:16→20:07)
[2023-05-11] MEDS: Divalproex Sodium Sprinkles 125 MG CAP.DR.SPR 500 MG PO ×2 (08:17→14:26)
[2023-05-11] MEDS: HaloperidoL 1 MG TABLET PO ×3 (09:15→20:07)
[2023-05-11] MEDS: OLANZapine ODT 10 MG TAB.RAPDIS TRANSLINGU (09:15)
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
[2023-05-11] MEDS: Acetaminophen 325 MG TABLET 650 MG PO ×2 (14:25→20:07)
[2023-05-11] MEDS: Divalproex Sodium Sprinkles 125 MG CAP.DR.SPR 750 MG PO (20:06)
[2023-05-11] MEDS: OLANZapine 7.5 MG TABLET PO (20:07)
[2023-05-11] MEDS: traZODone HCL 50 MG TABLET PO (20:07)
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
[2023-05-12] MEDS: Divalproex Sodium Sprinkles 125 MG CAP.DR.SPR 500 MG PO ×2 (11:30→16:07)
[2023-05-12] MEDS: HaloperidoL 1 MG TABLET PO ×3 (11:31→20:03)
[2023-05-12] MEDS: Memantine HCl 10 MG TABLET PO ×2 (11:31→20:02)
[2023-05-12] MEDS: traZODone HCL 100 MG TABLET PO ×3 (11:31→20:02)
[2023-05-12] MEDS: OLANZapine 2.5 MG TABLET PO (11:31)
[2023-05-12 11:43] VITALS: BP 134/63; PULSE 90; RESP 18; TEMP 36.6; O2SAT 99
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
[2023-05-12 18:00] VITALS: BP 136/70; PULSE 104; RESP 17; TEMP 35.9; O2SAT 97
[2023-05-12] MEDS: Divalproex Sodium Sprinkles 125 MG CAP.DR.SPR 750 MG PO (20:01)
[2023-05-12] MEDS: OLANZapine 7.5 MG TABLET PO (20:03)
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
[2023-05-13 11:15] VITALS: BP 132/60; PULSE 92; RESP 18; TEMP 36.8; O2SAT 97
[2023-05-13] MEDS: traZODone HCL 100 MG TABLET PO ×2 (11:30→22:53)
[2023-05-13] MEDS: Acetaminophen 325 MG TABLET 650 MG PO (11:32)
[2023-05-13] MEDS: OLANZapine 2.5 MG TABLET PO (11:32)
[2023-05-13] MEDS: Memantine HCl 10 MG TABLET PO ×2 (11:32→22:52)
[2023-05-13] MEDS: HaloperidoL 1 MG TABLET PO ×2 (11:32→22:53)
[2023-05-13] MEDS: Divalproex Sodium Sprinkles 125 MG CAP.DR.SPR 500 MG PO (11:32)
[2023-05-13 18:00] VITALS: BP 138/70; PULSE 76; RESP 14; TEMP 36.3; O2SAT 96
[2023-05-13] MEDS: Divalproex Sodium Sprinkles 125 MG CAP.DR.SPR 750 MG PO (22:52)
[2023-05-13] MEDS: OLANZapine 7.5 MG TABLET PO (22:54)
[2023-05-13] MEDS: traZODone HCL 50 MG TABLET PO (22:54)
[2023-05-14] MEDS: OLANZapine ODT 10 MG TAB.RAPDIS TRANSLINGU (08:58)
[2023-05-14] MEDS: Memantine HCl 10 MG TABLET PO ×2 (08:58→21:36)
[2023-05-14] MEDS: HaloperidoL 1 MG TABLET 2 MG PO ×3 (08:58→21:36)
[2023-05-14] MEDS: OLANZapine 2.5 MG TABLET PO (08:58)
[2023-05-14] MEDS: traZODone HCL 100 MG TABLET PO ×3 (08:58→21:36)
[2023-05-14] MEDS: Divalproex Sodium Sprinkles 125 MG CAP.DR.SPR 500 MG PO ×2 (08:59→16:07)
[2023-05-14 10:07] VITALS: BP 130/70; PULSE 95; RESP 16; TEMP 36.3; O2SAT 97
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
--- NOTE | 2023-05-14 15:28 | MHC.CLN ---
F/U DIET=REGULAR. ENSURE MAX PROTEIN TID PROVIDES 450 KCALS, 90 G PROTEIN. STAGE II PRESSURE INJURY TO RIGHT HEEL. SUPPLEMENT TO INCREASE PO INTAKE AND PROMOTE WOUND HEALING. INTAKE CONTINUES VARIABLE. DID NOT EAT BREAKFAST TODAY, ATE 75% AT LUNCH. MOLST COMPLETED. NO TUBE FEEDING. FOLLOW FOR INTAKE AND WOUND HEALING. RD TO FOLLOW WEEKLY.
[2023-05-14 18:00] VITALS: BP 135/75; PULSE 84; RESP 16
[2023-05-14] MEDS: traZODone HCL 50 MG TABLET PO (21:36)
[2023-05-14] MEDS: OLANZapine 7.5 MG TABLET PO (21:36)
[2023-05-14] MEDS: Divalproex Sodium Sprinkles 125 MG CAP.DR.SPR 750 MG PO (21:37)
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
[2023-05-15 12:00] VITALS: BP 128/74; PULSE 70; RESP 14; TEMP 36.8; O2SAT 97
--- NOTE | 2023-05-15 15:28 | PC.NURSE ---
Patient has been in bed all day. He was having periods of apnea 20-25 seconds long this morning. His vital signs are stable. His respirations are 12/ min. He is arousable and says that he doesn't feel good. His visited and is aware of the current situation and just want us to keep him comfortable. Right heel dressing changed without incident, blister intact, no drainage, Mago boot pplied to right foot. All po meds held and Dr. Verdugo aware in in agreement.
[2023-05-15 15:51] VITALS: RESP 12
[2023-05-15 18:00] VITALS: BP 134/83; PULSE 99; RESP 16; TEMP 36.4; O2SAT 96
[2023-05-15] MEDS: HaloperidoL 1 MG TABLET 3 MG PO (21:44)
[2023-05-15] MEDS: traZODone HCL 50 MG TABLET PO (21:45)
[2023-05-15] MEDS: OLANZapine 7.5 MG TABLET PO (21:49)
[2023-05-15] MEDS: traZODone HCL 100 MG TABLET PO (21:49)
[2023-05-15] MEDS: Divalproex Sodium Sprinkles 125 MG CAP.DR.SPR 750 MG PO (21:53)
[2023-05-15] MEDS: Memantine HCl 10 MG TABLET PO (21:54)
[2023-05-15] MEDS: OLANZapine ODT 10 MG TAB.RAPDIS TRANSLINGU (23:27)
[2023-05-16 10:45] VITALS: BP 145/70; PULSE 82; RESP 16; TEMP 36.4; O2SAT 100
[2023-05-16] MEDS: OLANZapine 2.5 MG TABLET PO ×2 (10:45→10:53)
[2023-05-16] MEDS: traZODone HCL 100 MG TABLET PO ×3 (10:45→20:46)
[2023-05-16] MEDS: HaloperidoL 1 MG TABLET 3 MG PO ×3 (10:45→20:46)
[2023-05-16] MEDS: Memantine HCl 10 MG TABLET PO ×2 (10:45→20:46)
[2023-05-16] MEDS: Divalproex Sodium Sprinkles 125 MG CAP.DR.SPR 500 MG PO ×2 (10:46→15:48)
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
[2023-05-16 18:00] VITALS: BP 140/86; PULSE 82; RESP 18; TEMP 36.2; O2SAT 100
[2023-05-16] MEDS: traZODone HCL 50 MG TABLET PO (20:46)
[2023-05-16] MEDS: OLANZapine 7.5 MG TABLET PO (20:46)
[2023-05-16] MEDS: Divalproex Sodium Sprinkles 125 MG CAP.DR.SPR 750 MG PO (20:47)
[2023-05-17 07:00] VITALS: BMI 20.6
[2023-05-17 10:15] VITALS: BP 136/76; PULSE 82; RESP 18; TEMP 36.3; O2SAT 100
[2023-05-17] MEDS: Divalproex Sodium Sprinkles 125 MG CAP.DR.SPR 500 MG PO ×2 (10:49→15:33)
[2023-05-17] MEDS: OLANZapine 2.5 MG TABLET PO (10:49)
[2023-05-17] MEDS: Memantine HCl 10 MG TABLET PO ×2 (10:49→20:06)
[2023-05-17] MEDS: traZODone HCL 100 MG TABLET PO ×3 (10:50→20:06)
[2023-05-17] MEDS: HaloperidoL 1 MG TABLET 3 MG PO ×3 (10:50→20:06)
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
[2023-05-17] MEDS: HYDROcodone Bit/Acetam 5/325 TABLET 1 TAB PO (16:11)
[2023-05-17 18:00] VITALS: BP 134/69; PULSE 90; RESP 18; TEMP 36.6; O2SAT 100
[2023-05-17] MEDS: OLANZapine ODT 10 MG TAB.RAPDIS TRANSLINGU (18:10)
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
[2023-05-17] MEDS: Divalproex Sodium Sprinkles 125 MG CAP.DR.SPR 750 MG PO (20:05)
[2023-05-17] MEDS: traZODone HCL 50 MG TABLET PO (20:06)
[2023-05-17] MEDS: OLANZapine 7.5 MG TABLET PO (20:06)
[2023-05-18 08:00] VITALS: BP 122/58; PULSE 75; RESP 18; TEMP 36.6; O2SAT 97
[2023-05-18] MEDS: Memantine HCl 10 MG TABLET PO ×2 (11:17→20:05)
[2023-05-18] MEDS: OLANZapine 2.5 MG TABLET PO (11:17)
[2023-05-18] MEDS: HaloperidoL 1 MG TABLET 3 MG PO ×3 (11:17→20:06)
[2023-05-18] MEDS: Divalproex Sodium Sprinkles 125 MG CAP.DR.SPR 500 MG PO ×2 (11:17→16:05)
[2023-05-18] MEDS: HYDROcodone Bit/Acetam 5/325 TABLET 1 TAB PO (11:18)
[2023-05-18] MEDS: traZODone HCL 100 MG TABLET PO ×3 (11:18→20:06)
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
[2023-05-18 18:00] VITALS: BP 122/59; PULSE 89; RESP 16; TEMP 36.4; O2SAT 97
[2023-05-18] MEDS: traZODone HCL 50 MG TABLET PO (20:05)
[2023-05-18] MEDS: Divalproex Sodium Sprinkles 125 MG CAP.DR.SPR 750 MG PO (20:05)
[2023-05-18] MEDS: OLANZapine 7.5 MG TABLET PO (20:06)
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
[2023-05-19 13:30] VITALS: BP 120/58; PULSE 76; RESP 14; TEMP 36.4; O2SAT 98
[2023-05-19] MEDS: Divalproex Sodium Sprinkles 125 MG CAP.DR.SPR 500 MG PO (14:08)
[2023-05-19] MEDS: OLANZapine 2.5 MG TABLET PO (14:09)
[2023-05-19] MEDS: traZODone HCL 100 MG TABLET PO ×2 (14:09→20:38)
[2023-05-19] MEDS: HaloperidoL 1 MG TABLET 3 MG PO ×2 (14:09→20:37)
[2023-05-19 18:00] VITALS: BP 112/56; PULSE 90; RESP 16; TEMP 36.2; O2SAT 96
[2023-05-19] MEDS: OLANZapine 7.5 MG TABLET PO (20:37)
[2023-05-19] MEDS: traZODone HCL 50 MG TABLET PO (20:37)
[2023-05-19] MEDS: Divalproex Sodium Sprinkles 125 MG CAP.DR.SPR 750 MG PO (20:37)
[2023-05-19] MEDS: Memantine HCl 10 MG TABLET PO (20:38)
--- NOTE | 2023-05-20 06:20 | PC.NURSE ---
Assumed care 19:00 (05/19). VSS. No acute complaints offered by pt. No distress or acute issues noted overnight. Pt slept seven hours with even and unlabored breathing observed on frequent purposeful rounding. See shift assessment for full details.
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
[2023-05-20] MEDS: HYDROcodone Bit/Acetam 5/325 TABLET 1 TAB PO (12:19)
[2023-05-20] MEDS: HaloperidoL 1 MG TABLET 3 MG PO ×2 (12:19→20:36)
[2023-05-20] MEDS: Divalproex Sodium Sprinkles 125 MG CAP.DR.SPR 500 MG PO (12:19)
[2023-05-20] MEDS: Memantine HCl 10 MG TABLET PO ×2 (12:19→20:37)
[2023-05-20] MEDS: traZODone HCL 100 MG TABLET PO ×2 (12:20→20:36)
[2023-05-20] MEDS: OLANZapine 2.5 MG TABLET PO (12:20)
[2023-05-20 18:00] VITALS: BP 139/69; PULSE 73; RESP 16; TEMP 36.3; O2SAT 98
[2023-05-20] MEDS: traZODone HCL 50 MG TABLET PO (20:36)
[2023-05-20] MEDS: OLANZapine 7.5 MG TABLET PO (20:36)
[2023-05-20] MEDS: Acetaminophen 325 MG TABLET 650 MG PO (20:36)
[2023-05-20] MEDS: Divalproex Sodium Sprinkles 125 MG CAP.DR.SPR 750 MG PO (20:37)
[2023-05-21 06:00] VITALS: BP 120/73; PULSE 75; RESP 16; TEMP 36.5; O2SAT 99
[2023-05-21] MEDS: HaloperidoL 1 MG TABLET 3 MG PO ×3 (10:07→20:25)
[2023-05-21] MEDS: traZODone HCL 100 MG TABLET PO ×3 (10:07→20:25)
[2023-05-21] MEDS: OLANZapine 2.5 MG TABLET PO (10:07)
[2023-05-21] MEDS: Memantine HCl 10 MG TABLET PO ×2 (10:08→20:26)
[2023-05-21] MEDS: HYDROcodone Bit/Acetam 5/325 TABLET 1 TAB PO ×2 (10:08→17:36)
[2023-05-21] MEDS: Divalproex Sodium Sprinkles 125 MG CAP.DR.SPR 500 MG PO ×2 (10:09→17:35)
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
[2023-05-21 19:35] VITALS: BP 149/70; PULSE 94; RESP 18; TEMP 36.6; O2SAT 94
[2023-05-21] MEDS: Divalproex Sodium Sprinkles 125 MG CAP.DR.SPR 750 MG PO (20:24)
[2023-05-21] MEDS: OLANZapine 7.5 MG TABLET PO (20:25)
[2023-05-21] MEDS: traZODone HCL 50 MG TABLET PO (20:26)
[2023-05-21] MEDS: Acetaminophen 325 MG TABLET 650 MG PO (20:26)
[2023-05-22 07:49] VITALS: BP 116/65; PULSE 78; RESP 16; TEMP 36.5; O2SAT 98
[2023-05-22] MEDS: traZODone HCL 100 MG TABLET PO ×2 (07:50→21:04)
[2023-05-22] MEDS: HYDROcodone Bit/Acetam 5/325 TABLET 1 TAB PO (07:50)
[2023-05-22] MEDS: Memantine HCl 10 MG TABLET PO ×2 (07:50→21:04)
[2023-05-22] MEDS: OLANZapine 2.5 MG TABLET PO (07:50)
[2023-05-22] MEDS: HaloperidoL 1 MG TABLET 3 MG PO ×2 (07:51→21:03)
[2023-05-22] MEDS: Divalproex Sodium Sprinkles 125 MG CAP.DR.SPR 500 MG PO (07:56)
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
[2023-05-22 18:00] VITALS: BP 128/60; PULSE 94; RESP 18; TEMP 37.2; O2SAT 98
[2023-05-22] MEDS: traZODone HCL 50 MG TABLET PO (21:03)
[2023-05-22] MEDS: Divalproex Sodium Sprinkles 125 MG CAP.DR.SPR 750 MG PO (21:04)
[2023-05-22] MEDS: OLANZapine 7.5 MG TABLET PO (21:04)
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
[2023-05-23 20:45] VITALS: BP 128/63; PULSE 93; RESP 15; TEMP 36.6; O2SAT 99
[2023-05-23] MEDS: HaloperidoL 1 MG TABLET 3 MG PO (20:47)
[2023-05-23] MEDS: traZODone HCL 50 MG TABLET PO (20:47)
[2023-05-23] MEDS: traZODone HCL 100 MG TABLET PO (20:47)
[2023-05-23] MEDS: Memantine HCl 10 MG TABLET PO (20:47)
[2023-05-23] MEDS: OLANZapine 7.5 MG TABLET PO (20:47)
[2023-05-23] MEDS: Divalproex Sodium Sprinkles 125 MG CAP.DR.SPR 750 MG PO (20:48)
[2023-05-24 07:00] VITALS: BMI 16.6
[2023-05-24 07:02] LABS: MANUAL DIFF FLAG NO
[2023-05-24 07:04] LABS: Basophils Percent Auto 0.2 % (0-2); Imm Gran Abs Auto 0.02 X10*3/uL (0.00-0.03); Imm Gran Pct Auto 0.4 % (0.0-0.4); Monocytes Absolute Auto 0.5 X10*3/uL (0.1-1.2)
[2023-05-24 07:09] LABS: Eosinophils Absolute Auto 0.1 X10*3/uL (0.0-0.4); Eosinophils Percent Auto 1.3 % (0-4); Hematocrit 36.7 % (42.0-52.0); Lymphocytes Absolute Auto 0.9 X10*3/uL (1.2-4.9); Lymphocytes Percent Auto 18.7 % (20-40); Mean Corpuscular HGB Conc 32.7 g/dl (31.0-36.0); Mean Corpuscular Hemoglobin 34.3 pg (27.0-33.0); Mean Corpuscular Volume 104.9 fL (80.0-98.0); Mean Platelet Volume 9.7 fL (9.4-12.4); Monocytes Percent Auto 9.8 % (2-11); Neutrophils Absolute Auto 3.2 x10*3/uL (2.0-8.3); Neutrophils Percent Auto 69.6 % (45-73); White Blood Count 4.6 X10*3/uL (4.8-10.8)
[2023-05-24 07:14] LABS: Platelet Count 161 X10*3/uL (160-400)
[2023-05-24 07:17] LABS: Estimated Average Glucose 100 mg/dL; Hemoglobin A1c % 5.1 % (<6.0)
[2023-05-24 07:18] LABS: Valproate 52.7 mcg/mL (50.0-100.0)
[2023-05-24 07:28] LABS: Alanine Aminotransferase 15 U/L (0-40); Albumin Level 3.7 g/dL (3.5-5.0); Alkaline Phosphatase 56 U/L (39-117); Anion Gap 11 (12-20); Aspartate Amino Transferase 25 U/L (5-37); Bilirubin Direct 0.2 mg/dL (0.0-0.5); Bilirubin Total 0.6 mg/dL (0.0-1.0); Blood Urea Nitrogen 30 mg/dL (9-16); Calcium 9.5 mg/dL (8.4-10.2); Carbon Dioxide 32 mmol/L (22-29); Chloride 119 mmol/L (96-108); Creatinine Clr Calc Pharmacy 59.7; Estimated Glomerular Filt Rate > 60; Glucose Random 98 mg/dL (60-115); Potassium 3.6 mmol/L (3.3-5.1); Sodium 158 mmol/L (135-145); Total Protein 6.9 g/dL (6.5-8.0)
[2023-05-24 07:44] LABS: Thyroid Stimulating Hormone 0.92 uIU/mL (0.32-4.0)
[2023-05-24 08:30] VITALS: BP 123/72; PULSE 75; RESP 18; TEMP 36.4; O2SAT 95
[2023-05-24] MEDS: Divalproex Sodium Sprinkles 125 MG CAP.DR.SPR 500 MG PO (11:27)
[2023-05-24] MEDS: HaloperidoL 1 MG TABLET 3 MG PO ×2 (11:27→21:07)
[2023-05-24] MEDS: traZODone HCL 100 MG TABLET PO ×2 (11:28→21:07)
[2023-05-24] MEDS: Memantine HCl 10 MG TABLET PO ×2 (11:28→21:07)
[2023-05-24] MEDS: OLANZapine 2.5 MG TABLET PO (11:28)
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
[2023-05-24 19:41] VITALS: BP 133/72; PULSE 96; RESP 17; TEMP 35.8; O2SAT 98
[2023-05-24] MEDS: Divalproex Sodium Sprinkles 125 MG CAP.DR.SPR 750 MG PO (21:04)
[2023-05-24] MEDS: traZODone HCL 50 MG TABLET PO (21:07)
[2023-05-24] MEDS: OLANZapine 7.5 MG TABLET PO (21:07)
[2023-05-25 06:00] VITALS: BP 137/80; PULSE 97; RESP 16; TEMP 36.8; O2SAT 97
[2023-05-25] MEDS: Divalproex Sodium Sprinkles 125 MG CAP.DR.SPR 500 MG PO (09:46)
[2023-05-25] MEDS: HaloperidoL 1 MG TABLET 3 MG PO (09:47)
[2023-05-25] MEDS: OLANZapine 2.5 MG TABLET PO (09:48)
[2023-05-25] MEDS: traZODone HCL 100 MG TABLET PO (09:48)
[2023-05-25] MEDS: Memantine HCl 10 MG TABLET PO (09:48)
[2023-05-25] MEDS: Milk of Magnesia 30 ML ORAL.SUSP PO (09:51)
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
[2023-05-25 19:30] VITALS: BP 139/85; PULSE 83; RESP 18; TEMP 36.7; O2SAT 98
--- NOTE | 2023-05-25 22:05 | PC.NURSE ---
Patient observed asleep in bed. Very difficult to arouse patient. VSS. Patient unable to wake to take PM meds. Provider notified.
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
[2023-05-26 10:47] VITALS: BP 134/87; PULSE 91; RESP 18; TEMP 36.3; O2SAT 97
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
[2023-05-26] MEDS: Divalproex Sodium Sprinkles 125 MG CAP.DR.SPR 500 MG PO (16:01)
[2023-05-26] MEDS: HaloperidoL 1 MG TABLET 3 MG PO (16:01)
[2023-05-26] MEDS: traZODone HCL 100 MG TABLET PO (16:02)
[2023-05-26 19:40] VITALS: BP 147/71; PULSE 87; RESP 16; TEMP 36.5; O2SAT 96
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
[2023-05-27 10:47] VITALS: BP 121/79; PULSE 93; RESP 18; TEMP 36.3; O2SAT 97
--- NOTE | 2023-05-27 11:55 | PC.NURSE ---
Serge is pocketing food/liquids in his mouth and appearing to have difficulty swallowing. Morning meds held and Dr. Adams notified.
[2023-05-27 18:00] VITALS: BP 128/86; PULSE 96; RESP 18; TEMP 35.8; O2SAT 98
--- NOTE | 2023-05-28 02:41 | PC.NURSE ---
05-28-22 0200 pt is more awake. he opens eyes to voice and responds 9in 1-2 word responses. he moves arms and hands purposefully. his skin turgor is decreased and oral mucosa is dessicated. with encouragement and time pt was given 240 ml of gingerale which he entirely drank. pt repositioned to maintaine skin integrity. heels floated off the mattress.
[2023-05-28] MEDS: Memantine HCl 10 MG TABLET PO (10:40)
--- NOTE | 2023-05-28 12:30 | MHC.SL.SWA ---
Speech Pathologist Impression: Risk of aspiration, oropharyngeal dysphagia Risk of Aspiration Due to: Neurological Condition Reduced Cognition Dysphasia Diet Status: Downgrade to NPO Liquid Consistency and Strategies for Safe Swallow: Liquid Intake Recommendation: NPO Solid Food Consistency: Dietary Recommendations: NPO Additional Modifications to Solid Foods: Pt seen for BDE this morning. Pt unable to form bolus with no initiation of pharyngeal swallow despite significant cuing. Pt ultimately spit out a large amount of liquid and puree. RN reports pt seems to have forgotten how to swallow and spits out food, liquid and medications. Recommend DOWNGRADE at this time to NPO, ice chips and frequent oral care for comfort/hygiene. Pt is currently followed by RD. Pt may benefit from G.I. consult as well to assess if an alternate means of nutrition is a safe and appropriate option pending discussion between family/caregivers and medical team in regards to pt's goals of care. COATING AND EMBOSSING UNIT OPERATOR will continue to follow, re-assess when appropriate. Oral Medication Intake: NPO Please contact the pharmacy regarding appropriate crushable or liquid drug formulations that are available whenever modified delivery is recommended. Supervision While Eating and Drinking for Safe Swallow: PO with COATING AND EMBOSSING UNIT OPERATOR Swallowing Recommended Treatments: Gustatory Stimulation, Compens. Strategy Educat. Recommendation for Speech: Inpatient Speech Therapy Sewing Machine Operator Paper Bags Clinican/Clinical Fellow: No Supervisory Statement: I have reviewed and agree with the student/clinical fellow's documentation: N/A Speech Language Pathologist: Sharita Juan M.A., [facility]-COATING AND EMBOSSING UNIT OPERATOR
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
--- NOTE | 2023-05-28 14:30 | MHC.CLN ---
F/U PATIENT SEEN BY [employer] SECURITY ASSESSMENT TODAY WITH RECOMMENDATION FOR NPO. DIET CHANGED TO NPO. PATIENT IS NOW COMFORT MEASURES ONLY. RD AVAILABLE NEEDED.
[2023-05-28 20:15] VITALS: BP 108/60; PULSE 79; RESP 15; TEMP 36.4; O2SAT 95
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
--- NOTE | 2023-05-29 15:39 | MHC.SLORD ---
Speech Language Pathology Order Status: Per RN, Pt now CLIENT RELATIONSHIP EXECUTIVE, swallowing not a part of his goals. Please re-consult if status changes.
[2023-05-29 22:34] VITALS: BP 134/78; PULSE 80; RESP 16; TEMP 36.4; O2SAT 95
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
[2023-05-30 12:01] VITALS: BP 104/60; PULSE 102; RESP 14; TEMP 36.1; O2SAT 98
[2023-05-30 18:00] VITALS: BP 109/79; PULSE 100; RESP 18; TEMP 36.3; O2SAT 94
[2023-05-31 08:09] VITALS: RESP 16
--- NOTE | 2023-05-31 12:30 | P.PNPSI_ITS ---
Subjective Subjective Date of Service: 05/31/23 Reason For Visit: Dementia Subjective Notes: Conditional Voluntary (By healthcare proxy) Healthcare Proxy: Yes Interim History: The nursing staff reported the patient had been on informed measures and he is on one-to-one. See his bed sleeping. The social insurance adviser reported that she has referred to several hospices but apparently there financial constraints. On interview the patient is hypoactive on his bed with minimal interaction. It is clear that the patient is terminal at this moment. Mental Status Exam Mental Status Exam Patient Appearance: Appropriate Patient Orientation: Person and Situation Level of Consciousness: Awake and Appropriate Patient Behavior: Passive and Asleep Mood Description: Withdrawn Affect Description: Blunted Patient Cognition Impaired: Yes Ability to Follow Directions: Poor Speech Pattern: No Speech Hallucinations: None Delusions: Not Present Thought Process: Slowed Thinking and Confusion Thought Content: positive for D[place] and positive for Poverty of Content Judgement: Poor Diagnostics Vital Signs (24Hr): Vital Signs - 24 hr 05/30/23 18:00 05/31/23 08:09 Temperature 97.4 F Pulse Rate 100 Respiratory Rate 18 16 Blood Pressure 109/79 Pulse Oximetry 94 Oxygen Delivery Method Room Air BMI result Body Mass Index 16.6 Labs 05/24/23 06:49 05/24/23 06:49 Imaging Radiology Impressions: ITS Impressions Head CT 05/12/23 15:40 IMPRESSION: There is loss of parenchymal volume and scattered chronic small vessel ischemic changes within the periventricular white matter. Otherwise unremarkable examination. No evidence of acute territorial infarct or hemorrhage. Medications Medications Current Medications Acetaminophen (Acetaminophen 325 Mg Tablet) 650 mg PO Q6H PRN PRN Reason: Headache/Pain Mild Scale (1-3) Last Admin: 05/21/23 20:26 Dose: 650 mg Al Hydroxide/Mg Hydroxide (Magnesium Hydrox/Alum Hydrox 30 Ml Oral.Susp) 30 ml PO Q6H PRN PRN Reason: Heartburn/Nausea Clonazepam (Clonazepam 0.125 Mg Tab.Rapdis) 0.125 mg PO BID PRN PRN Reason: Anxiety Last Admin: 05/29/23 12:35 Dose: 0.125 mg Loperamide HCl (Loperamide Hcl 2 Mg Capsule) 2 mg PO Q6H PRN PRN Reason: Diarrhea Last Admin: 04/09/23 16:16 Dose: 2 mg Magnesium Hydroxide (Milk Of Magnesia 30 Ml Oral.Susp) 30 ml PO DAILY PRN PRN Reason: Constipation Last Admin: 05/25/23 09:51 Dose: 30 ml Olanzapine (Olanzapine Odt 10 Mg Tab.Rapdis) 10 mg TRANSLINGU BID PRN PRN Reason: Psychosis Last Admin: 05/17/23 18:10 Dose: 10 mg Allergies Allergies Allergy/AdvReac Type Severity Reaction Status Date / Time No Known Allergies Allergy Verified 04/05/23 12:12 Assessment & Plan Assessment & Plan (1) Major neurocognitive disorder: Status: Acute Code(s): F03.90 - Unspecified dementia, unspecified severity, without behavioral disturbance, psychotic disturbance, mood disturbance, and anxiety Plan Pt is a 77-year-old male with a PMH significant for?unspecified dementia who is admitted to [facility] for increased disorganization, confusion, and violence against his . Patient needed to be restrained by EMS. Has apparently been noncompliant with his psychiatric medications for at least 3 months, spitting out his pills and saying that he cannot swallow them. Medical consult for admission H&P. Mood disorder/dementia Plan as per Psychiatry According to chart review patient apparently has no other significant PMH and is not on any home meds other than those for psychiatry. Plan 1. Depakote level on April 09 is at 58.7 on 750 mg/day but still grossly disinhibited. We are increasing up to a 1000 mg a day, will recheck in a few days. 2. Since the patient had not been over-sedated with Seroquel 25 p.o. t.i.d. very increasing to 37.5 p.o. t.i.d. to target disorganized behavior. On April 10 we increased up to 50 mg p.o. t.i.d. since he remains unpredictable and labile. On April 11, we are increasing Seroquel 50 mg po bid and 100 mg po qhs and increase PRN. On April 12 we increased the Seroquel to 100 mg p.o. b.i.d. and 100 mg p.o. q.h.s. since he is not over-sedated with this dose. On April 13 due to the continue disruptive behavior we increase Seroquel at night up to 200 mg p.o. q.h.s.. On April 15 we decided to increased Seroquel up to 150 mg p.o. b.i.d. and 300 mg p.o. q.h.s.. 3. Aricept is increased up to 10 mg p.o. q.h.s. on April 11. 4. We will start Namenda 5 mg p.o. b.i.d. on April 13. We are increasing Namenda to 10 mg p.o. b.i.d. on April 15. 5. Lab work for April 19 with CBC, basic metabolic panel hemoglobin A1c, lipid profile and Depakote level. Depakote is in the lower 60s. We are increasing Depakote up to 500 mg p.o. t.i.d. to target impulsivity and Depakote was on a therapeutic level April 24. April 25 we are increasing Depakote up to 750 p.o. q.h.s. and 500 mg b.i.d. we will recheck Depakote levels next Sunday. 6. At this moment, we are not going to change the Seroquel even though that is a high dose because, without this medication the patient becomes very violent against staff and peers 7. significant weight loss of about 16.4% since admission in about one month. R/O--> medications such as aricept which can contribute to significant weight loss, especially in individual 55Kg or less. R/O organic causes, malignancy. WIll repeat CBC and CMP. Note that pt has macrocityc anemia, checking B12 levels and treat judiciously. Risk Specialist following, high protein. 8. labs reviewed. Low protein, pancytopenia and high vit B12 levels. Will ask medicine to review labs and give advice. Otherwise continue treatment plan. 9. On May 01 we decided to discontinue Seroquel and changed to Zyprexa 2.5 p.o. q.a.m. and 7.5 p.o. q.h.s. with 10 mg p.o. is p.r.n. agitation. 10. On May 02, we started trazodone 25 p.o. t.i.d. to target irritability we increased up to 50 mg p.o. t.i.d. on May 03. On May 07 we increase it up to 75 p.o. t.i.d.. On May 08 we increased it up to 100 p.o. t.i.d.. We will monitor for over-sedation. 11. On May 11 we decided to add a 2nd antipsychotics Haldol 1 mg p.o. t.i.d. to target agitation and disorganized behavior. On May 14 we decided to increase Haldol up to 2 mg p.o. t.i.d. since there were no evidence of EPS. May 15 we increase Haldol up to 3 mg p.o. t.i.d. 12. On May 17 we started opioids at a low dose q.8 hours P.r.n. for pain . Later on the opioids were discontinued due to over-sedation. 13. Blood work for May 24 came back within normal limits no major changes, slight hypernatremia since the patient has poor p.o. intake. Depakote and a therapeutic range. 14. On May 27 we decided to lower trazodone to 75 mg p.o. t.i.d. since he looks over-sedated. 15. On May 28 the patient will be done in NPO and he will not receive IV hydration as per request of his who is the healthcare proxy. We discussed with senior management about comfort care and hospice treatment. 16. Hospital consult for details on comfort care. 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
[2023-05-31] MEDS: OLANZapine ODT 10 MG TAB.RAPDIS TRANSLINGU (14:34)
[2023-06-01] MEDS: OLANZapine ODT 10 MG TAB.RAPDIS TRANSLINGU (09:55)
[2023-06-01 10:56] VITALS: RESP 20
--- NOTE | 2023-06-01 11:19 | PM.EVENT ---
Event Note Date of Service: 06/01/23 Event Note: Asked to see the patient for assistance in comfort care management. Pt seen and examined. Case d/w with Dr. Greenwood. Pt made CONTENT ENGINEER for end stage dementia. Case d/w pts RN today and bed-side sitter. Patient has had intermittent, but increasing, respiratory distress. RN states patient appears to be gasping for air at time. This has been on going last 24 hours. On exam Pt with sluggish pupils No response to verbal stimuli S1S2 Currently appears comfortable. Pt currently on oral klonopin / zyprexa PRN which appear to be helping. Will add on PRN morphine for respiratory distress. Above relayed to Dr. Adams. Please reconsult if any issues. Thank you. Time Spent With Patient Time: Total time managing care of this patient today ____ minutes.
[2023-06-01 11:25] VITALS: RESP 64
[2023-06-01] MEDS: Morphine Sulfate Oral Sol 10 MG/5 ML SOLUTION PO ×2 (11:41→12:26)
--- NOTE | 2023-06-01 13:56 | PM.EVENT ---
Event Note Date of Service: 06/01/23 Event Note: Called by RN to report that patient has . Pt seen and examined. No spontaneous activity. No response to verbal/tactile stimuli. No heart sounds or spontaneous respiration. Pupils fixed and unreactive. Time of : 1348 Time Spent With Patient Time: Total time managing care of this patient today ____ minutes.
--- NOTE | 2023-06-01 14:02 | PM.PSYDC ---
DS: Providers Provider Date of Service: 06/01/23 Date of admission: 04/05/23 11:40 Date of discharge: 06/01/23 Primary care physician: Lilia Jackson MD Consults: 04/05/23 12:13 Consult to Hospitalist Routine Comment: Consulting Provider: Hospitalist Reason For Exam: direct admission 04/28/23 18:52 Consult to Hospitalist Routine Comment: Consulting Provider: Hospitalist Reason For Exam: weight loss, pancytopenia. Can be seen tomorrow. 05/11/23 10:58 Consult to Hospitalist Routine Comment: Consulting Provider: Hospitalist Reason For Exam: recent fall 05/29/23 10:58 Consult to Hospitalist Routine Comment: Consulting Provider: Hospitalist Reason For Exam: NPO, terminal? 06/01/23 10:58 Consult to Hospitalist Routine Comment: Consulting Provider: Hospitalist Reason For Exam: NPO comfort measures, terminal Attending physician on discharge: Ezequiel Adams DS: Diagnosis Discharge Diagnosis (1) Major neurocognitive disorder: Status: Acute Mental Status Exam Mental Status Exam Narrative: The patient is Data Imaging Diagnostic Imaging Impressions Head CT 05/12/23 15:40 IMPRESSION: There is loss of parenchymal volume and scattered chronic small vessel ischemic changes within the periventricular white matter. Otherwise unremarkable examination. No evidence of acute territorial infarct or hemorrhage. DS: Summary Hospital Course Hospital Course: The patient was a 77-year-old male, , with prior history of dementia referred from the emergency room of another hospital transferred from assisted living facility due to excessive agitation and violent behavior. Please see the HPI of the admission note for further details. On intake, the patient was extremely confused, unable to provide any information. We continue with Depakote titrated up to a therapeutic level but he was still agitated, violent, pinching staff and peers. We had to add Zyprexa that he was titrated up to 15 mg a day with some limited response. Due to the continuation of the agitation and the frequent PRNs, we decided to have a family meeting and discuss treatment options. The was the healthcare proxy and her children agreed to add a 2nd antipsychotics to target mood lability and psychosis. We started giving Haldol up to 3 mg p.o. t.i.d.. The patient's behavior remains disorganized, confused and suddenly he decided to stop eating. It was clear that the patient was having terminal dementia with agitation. We consulted with the family, his and the medical team and he was cleared the patient had terminal dementia. We consulted speech and swallow and they decided that he should be NPO. We have discussed end of life conditions since the beginning with the and she sign a MOLST. HIS DID NOT WANT IV FLUIDS, ARTIFICIAL FEEDING, HE IS DNR AND DNI. We consulted Medicine and he was on comfort care measures. We discontinue all the medications and giving only PRNs. On June 01 after visit with his the patient remained unconscious and he around 13:30. We called his and informed, the family was very grateful for the help that we provide. Status at Discharge Cognitive/behavioral status at discharge: Time Spent with Patient Time attestation: Total time managing care of this patient today __30__ minutes. Time spent: Less than 30 minutes Discharge Plan Discharge Discharge Diagnosis: Dementia Terminal Referrals: Lilia Jackson MD [Primary Care Provider] - 1 Week
== END 2023-06-01 15:36 | disposition expired | DRG 753 ==
PROVIDERS: Social Worker; Admitting Provider Psychiatry & Neurology Psychiatry; PCP Internal Medicine; Visit Provider Psychiatry & Neurology Psychiatry
DX: F39 Unspecified mood [affective] disorder (principal); E46 Unspecified protein-calorie malnutrition; D61.818 Other pancytopenia; G30.9 Alzheimer's disease, unspecified; F02.811 Dementia in other diseases classified elsewhere, unspecified severity, with agitation; Z91.148 Patient's other noncompliance with medication regimen for other reason; R63.4 Abnormal weight loss; Z68.1 Body mass index [BMI] 19.9 or less, adult; Z23 Encounter for immunization; Z66 Do not resuscitate; Z51.5 Encounter for palliative care
CPT/HCPCS: 36415; 70450; 80048; 80053; 80061; 80076; 80164; 82140; 82607; 82746; 83036; 84443; 85025; 90686; 92610; 92950

== ENCOUNTER → 2023-04-05 11:40 | Outpatient (BNV) | payer BC, MEDICAID, SELFPAY | PROVIDERS: Admitting Provider Psychiatry & Neurology Psychiatry; PCP Internal Medicine; Visit Provider Student in an Organized Health Care Education/Training Program | DX: Z02.2 Encounter for examination for admission to residential institution (principal) | CPT/HCPCS: 99429; 99499 ==

== ENCOUNTER → 2023-04-05 11:40 | Outpatient (BNV) | payer BC, MEDICAID, SELFPAY | PROVIDERS: Admitting Provider Psychiatry & Neurology Psychiatry; PCP Internal Medicine; Visit Provider Psychiatry & Neurology Psychiatry | DX: F03.90 Unspecified dementia, unspecified severity, without behavioral disturbance, psychotic disturbance, mood disturbance, and anxiety (principal) | CPT/HCPCS: 90792; 99231; 99232; 99238 ==